=== PATIENT | female | born 1980 | race Asian ===

== ENCOUNTER 2019-02-04 23:16 | Emergency (ER) | payer OTHER ==
[2019-02-04 23:22] VITALS: BP 142/97; PULSE 86; TEMP 97.5; BMI 22.8
--- NOTE | 2019-02-05 00:03 | PDOC ---
History of Present Illness - General Chief Complaint: Migraine Headache Stated Complaint: MIGRAINE Time Seen by Provider: 02/05/19 00:03 History Source: Patient Exam Limitations: No Limitations - History of Present Illness Initial Comments: 02/05/19 00:11 38 year old female with PMH migraine headaches presented to ED for headache since 1999 today. Pt stated she was fasting all day today before her headache developed to her forehead, wrapping posteriorly across her bilateral parietal and occipital area. She stated her headache was gradual in onset. She stated she took 1 Sumitriptan, which usually resolves her headache, but she threw it up and her headache did not improve, so she came to the ED. She admitted to photophobia, phonophobia. She denied fever, chills, weakness, numbness, tingling , visual changes, neck stiffness. Allergies: NKDA Past History - Past Medical History Allergies/Adverse Reactions: Allergies Allergy/AdvReac Type Severity Reaction Status Date / Time No Known Allergies Allergy Verified 02/05/19 00:16 Home Medications: Ambulatory Orders NK [No Known Home Medication] 02/05/19 - Suicide/Smoking/Psychosocial Hx Smoking History: Unknown if ever smoked Hx Alcohol Use: No Drug/Substance Use Hx: No Review of Systems - Review of Systems Able to Perform ROS?: Yes Comments:: 02/05/19 00:11 General: denied fever, chills, generalized weakness. HEENT: denied sore throat, rhinorrhea, ear pain. admitted to phonophobia. Eye: admitted to photophobia. Heart: denied chest pain, palpitations, syncope, diaphoresis. Respiratory: denied shortness of breath, cough, sputum production, hemoptysis. Abdomen: admitted to nausea, vomiting. denied abdominal pain, diarrhea, constipation, blood in stool. : denied dysuria, increased urinary frequency, hematuria, urinary incontinence , flank pain. Back: denied back pain. Musculoskeletal: denied joint pain, muscle pain, joint swelling. Neurological: admitted to headache. denied dizziness, numbness, tingling, weakness. Skin: denied rash, laceration, abrasion. *Physical Exam - Vital Signs Last Vital Signs Temp Pulse Resp BP Pulse Ox 97.5 F L 86 20 142/97 99 02/04/19 23:18 02/04/19 23:18 02/04/19 23:18 02/04/19 23:18 02/04/19 23:18 - Physical Exam Comments: 02/05/19 00:16 Constitutional: Well-nourished, Well-developed, appearing stated age. HEENT: head is normocephalic, atraumatic. EOMI. PERRLA. Neck: supple. Full ROM. Heart: regular rhythm. no murmurs, rubs or gallops. Lungs: clear to auscultation bilaterally. no crackles, rhonchi or wheezing. no stridor. Abdomen: soft, nontender. normal bowel sounds. no rebound, guarding, masses. Extremities: peripheral pulses intact. no lower extremity edema. Neurological: alert. oriented x3. CN2-12 intact. 5/5 strength all extremities. normal ankle plantar flexion. 2/2 sensation to bilateral lower extremities. 2/2 sensation to bilateral upper extremities. 2/2 sensation to bilateral upper and lower face. no ataxia. gait not observed. Psych: awake, alert, oriented x3. follows commands. answers questions appropriately. Medical Decision Making - Medical Decision Making 02/05/19 00:12 38 year old female with PMH migraine headaches presented to ED for headache since 1999 today. Initial Vital Signs Temp Pulse Resp BP Pulse Ox 97.5 F L 86 20 142/97 99 02/04/19 23:18 02/04/19 23:18 02/04/19 23:18 02/04/19 23:18 02/04/19 23:18 Afebrile. No tachycardia. No tachypnea. Mild hypertension. No hypoxia on room air. Labs ordered: none Imaging ordered: none Medications ordered: normal saline bolus 1000 cc once, tylenol IV once, reglan 10 mg IV once, benadryl 25 mg IV 02/05/19 00:56 Pt reassessed, reported headache improvement from 07/08 to 02/05. Pt given sandwich and juice. 02/05/19 01:46 Pt reported improvement of headache and is requesting to go home. Pt informed to follow up with Dr. Dai and PCP. Pt discharged. *DC/Admit/Observation/Transfer Diagnosis at time of Disposition: Headache - Discharge Dispostion Disposition: HOME Condition at time of disposition: Improved Decision to Admit order: No - Referrals Referrals: Flor Regalado MD [Primary Care Provider] - - Patient Instructions Additional Instructions: You were seen today for headache. Take tylenol over the counter for your headache. Take 1000 mg every 8 hours as needed. Drink lots of fluids to stay hydrated. Eat three meals a day. Get at least 8 hours of sleep a night. Follow up with your neurologist within 1 week. Your care is not complete until you follow up. Follow up with your primary care doctor within 1 week. Your care is not complete until you follow up. Return to the Emergency Department for increasing headache despite Tylenol use, vomiting, changes to vision, neck stiffness, chest pain, shortness of breath, weakness of her extremities, numbness, tingling, changes to your gait, feeling off balance or any other new, worsening or concerning symptoms. - Post Discharge Activity Forms/Work/School Notes: Back to Work
[2019-02-05] MEDS ORDERED: METOCLOPRAMIDE HCL INJECTION 10 MG/2 ML VIAL IVPUSH ONE (00:13)
[2019-02-05] MEDS ORDERED: SODIUM CHLORIDE 1,000 ML IV STA (00:13)
[2019-02-05] MEDS ORDERED: ACETAMINOPHEN 1000 MG/100 ML VIAL (NON FORMULARY) IVPB ONE (00:13)
--- NOTE | 2019-02-05 02:09 | PDOC ---
Attending Attestation - Resident Resident Name: Chandni Nathan - ED Attending Attestation I have performed the following: I have examined & evaluated the patient, The case was reviewed & discussed with the resident, I agree w/resident's findings & plan, Exceptions are as noted - HPI HPI: 02/05/19 03:09 38F pmh migraine headaches here with POE since 8pm. POE is typical pattern for her, bilateral frontal radiating back, slow onset, not exertional, not maximum at onset, a/w photo/phonophobia, nausea. No other complaints - Physicial Exam PE: 02/05/19 03:12 NCAT, AOx3, NAD Neck supple agree with detailed exam as documented by resident - Medical Decision Making 02/05/19 03:12 Likely migranous headache, symptoms usually aborted by her fioricet but she couldn't keep the medication down analgesia ivf re-eval symptoms resolved f/u pcp as needed
== END 2019-02-05 01:49 | disposition home or self-care (01) ==
LOC: JER 23:16
PROC: 3E0337Z Introduction of Electrolytic and Water Balance Substance into Peripheral Vein, Percutaneous Approach (ICD-10-PCS; principal; 2019-02-04)
PROC: 3E033NZ Introduction of Analgesics, Hypnotics, Sedatives into Peripheral Vein, Percutaneous Approach (ICD-10-PCS; 2019-02-04)
PROC: 3E033GC Introduction of Other Therapeutic Substance into Peripheral Vein, Percutaneous Approach (ICD-10-PCS; 2019-02-04)
PROC: 3E033GC Introduction of Other Therapeutic Substance into Peripheral Vein, Percutaneous Approach (ICD-10-PCS; 2019-02-04)
DX: G43.909 Migraine, unspecified, not intractable, without status migrainosus (principal); R51 Headache
CPT/HCPCS: 99282-25; J0131; J7030

== ENCOUNTER 2020-06-09 05:05 | Day surgery (SDC) | payer OTHER ==
[2020-06-07 16:23] VITALS: BMI 22.6
[2020-06-09] MEDS ORDERED: LIDOCAINE HCL 1%, 10 MG/ML (20ML VIAL) ONE (07:52)
[2020-06-09 08:46] VITALS: BP 140/74; PULSE 83; TEMP 98.4
[2020-06-09] MEDS ORDERED: PROPOFOL 20 ML ONE ×2 (09:50)
[2020-06-09] MEDS ORDERED: MIDAZOLAM HCL 2 MG/2 ML SINGLE DOSE VIAL ONE (09:51)
== END 2020-06-09 10:17 | disposition home or self-care (01) ==
LOC: JASU-SURG 05:05
PROVIDERS: ATTEND Surgery
DX: Z53.8 Procedure and treatment not carried out for other reasons (principal)
CPT/HCPCS: 84703

== ENCOUNTER 2021-02-09 00:40 | Inpatient (IN) | payer OTHER ==
[2021-02-09] MEDS ORDERED: ELECTROLYTE-148 SOLN 1,000 ML IV SCH (01:00)
[2021-02-09 02:05] LABS: BASO % 0.2 % (0-2.0); HEMATOCRIT 41.6 % (32.4-45.2); HEMOGLOBIN 14.1 GM/dL (10.7-15.3); LYMPH % 26.7 % (8-40); MCH 28.5 pg (25.7-33.7); MCHC 33.9 g/dl (32.0-36.0); MEAN CELL VOLUME 84.1 fl (80-96); MEAN PLT VOLUME 9.4 fl (7.5-11.1); MONO % 9.1 % (3.8-10.2); PLATELET COUNT 191 K/MM3 (134-434); RBC 4.95 M/mm3 (3.60-5.2); RDW 17.3 % (11.6-15.6); WHITE BLOOD COUNT 8.1 K/mm3 (4.0-10.0)
[2021-02-09 02:15] LABS: INR 0.89 (0.83-1.09); PROTHROMBIN TIME (PATIENT) 10.8 SEC (9.7-13.0)
[2021-02-09 02:18] LABS: ACTIVATED PTT 26.4 SECONDS (25.2-36.5)
[2021-02-09 02:27] LABS: CALCIUM 8.8 mg/dL (8.5-10.1)
[2021-02-09 02:28] LABS: BLOOD UREA NITROGEN 10.6 mg/dL (7-18)
[2021-02-09 02:31] LABS: CREATININE 0.6 mg/dL (0.55-1.3)
[2021-02-09] MEDS ORDERED: FENTANYL/BUPIVACAINE/NS/PF - PCEA - 50 ML DISP.SYRIN EP ONE ×2 (02:32→05:53)
[2021-02-09] MEDS ORDERED: PCA PUMP NR ONE ×3 (02:32→08:53)
[2021-02-09 03:22] LABS: HIV INTERPRETATION NEGATIVE (NEGATIVE)
[2021-02-09 03:29] VITALS: BMI 25.4
[2021-02-09] MEDS ORDERED: FENTANYL/BUPIVACAINE/NS/PF - PCEA - 50 ML DISP.SYRIN EP SCH (03:30)
[2021-02-09] MEDS ORDERED: NALOXONE HCL 0.4 MG/ML VIAL IVPUSH PRN (03:30)
[2021-02-09] MEDS ORDERED: BUPIVACAINE HCL/PF 0.25% (2.5MG/ML) 10 ML VIAL ONE ×2 (04:42→07:03)
[2021-02-09] MEDS ORDERED: OXYTOCIN 20 UNITS in 0.9% NS 20 UNIT/1,000 ML INFUS.BAG IV ONE (07:16)
[2021-02-09] MEDS ORDERED: OXYTOCIN 30 UNITS in 0.9% NS 30 UNIT/500 ML INFUS.BAG IVPB ONE (07:16)
[2021-02-09] MEDS: OXYTOCIN 20 UNITS in 0.9% NS 20 UNIT/1,000 ML INFUS.BAG IV SCH (08:05)
[2021-02-09] MEDS ORDERED: BENZOCAINE 28 GM HEMORRHOIDAL OINTMENT TP PRN (08:21)
[2021-02-09] MEDS ORDERED: BISACODYL 10 MG SUPP.RECT RC PRN (08:21)
[2021-02-09] MEDS ORDERED: WITCH HAZEL 50% (TUCKS) 40 PAD/JAR PAD TP PRN (08:21)
[2021-02-09] MEDS ORDERED: METHYLERGONOVINE MALEATE 0.2 MG/1 ML AMP IM PRN (08:21)
[2021-02-09] MEDS ORDERED: BENZOCAINE 20% 57 GM BOTTLE TP PRN (08:21)
[2021-02-09] MEDS: LEVOTHYROXINE NA 25 MCG TABLET (FP) PO SCH (08:45)
[2021-02-09] MEDS ORDERED: IBUPROFEN 600 MG TABLET (FP) PO ONE (08:52)
[2021-02-09] MEDS ORDERED: ACETAMINOPHEN 325 MG TABLET (FP) ONE (08:53)
[2021-02-09] MEDS: IBUPROFEN 600 MG TABLET (FP) PO PRN ×3 (08:55→21:38)
[2021-02-09] MEDS: ACETAMINOPHEN 325 MG TABLET (FP) PO PRN ×3 (08:55→21:38)
[2021-02-09 09:00] LABS: CORD BASE EXCESS -7.6 mmol/L (0-2); CORD HCO3 20.7 mmHg (20-29); CORD PCO2 52.1 mmHg (30-78); CORD pH 7.218 (7.14-7.44)
[2021-02-09 09:02] LABS: CORD BASE EXCESS -9.1 mmol/L (0-2); CORD HCO3 21.2 mmHg (20-29); CORD PCO2 62.7 mmHg (30-78); CORD pH 7.146 (7.14-7.44)
[2021-02-09] MEDS: FERROUS SO4 325 MG TABLET (FP) PO SCH ×2 (10:00→17:18)
[2021-02-09] MEDS: PRENATAL VITAMINS W/ FOLIC ACID TABLET (FP) PO SCH (10:00)
[2021-02-10] MEDS: LEVOTHYROXINE NA 25 MCG TABLET (FP) PO SCH (06:31)
[2021-02-10] MEDS: IBUPROFEN 600 MG TABLET (FP) PO PRN ×3 (06:31→20:21)
[2021-02-10] MEDS: ACETAMINOPHEN 325 MG TABLET (FP) PO PRN ×3 (06:32→20:20)
[2021-02-10] MEDS: FERROUS SO4 325 MG TABLET (FP) PO SCH ×2 (08:50→17:28)
[2021-02-10 09:28] LABS: BASO % 0.2 % (0-2.0); EOS % 1.7 % (0-4.5); HEMATOCRIT 31.3 % (32.4-45.2); HEMOGLOBIN 10.7 GM/dL (10.7-15.3); LYMPH % 16.7 % (8-40); MCH 29.1 pg (25.7-33.7); MCHC 34.2 g/dl (32.0-36.0); MEAN CELL VOLUME 85.3 fl (80-96); MEAN PLT VOLUME 9.5 fl (7.5-11.1); MONO % 7.3 % (3.8-10.2); NEUT % 74.1 % (42.8-82.8); PLATELET COUNT 147 K/MM3 (134-434); RBC 3.67 M/mm3 (3.60-5.2); WHITE BLOOD COUNT 11.5 K/mm3 (4.0-10.0)
[2021-02-10] MEDS: PRENATAL VITAMINS W/ FOLIC ACID TABLET (FP) PO SCH (09:46)
[2021-02-10] MEDS ORDERED: SENNOSIDES/DOCUSATE COMBO (SENNA PLUS) TABLET (UD) PO PRN (22:00)
[2021-02-11] MEDS: IBUPROFEN 600 MG TABLET (FP) PO PRN ×3 (05:12→15:13)
[2021-02-11] MEDS: ACETAMINOPHEN 325 MG TABLET (FP) PO PRN ×3 (05:12→15:12)
[2021-02-11] MEDS: LEVOTHYROXINE NA 25 MCG TABLET (FP) PO SCH (06:15)
[2021-02-11] MEDS: OXYTOCIN 20 UNITS in 0.9% NS 20 UNIT/1,000 ML INFUS.BAG IV SCH (08:38)
[2021-02-11] MEDS: FERROUS SO4 325 MG TABLET (FP) PO SCH ×2 (08:41→17:59)
[2021-02-11 09:06] VITALS: BP 124/76; PULSE 67; TEMP 98.6
[2021-02-11] MEDS: PRENATAL VITAMINS W/ FOLIC ACID TABLET (FP) PO SCH (09:33)
== END 2021-02-11 18:05 | disposition home or self-care (01) | DRG 807 ==
LOC: JLDR 00:40 → J3W 10:30
PROVIDERS: ADMIT Obstetrics & Gynecology; ATTEND Obstetrics & Gynecology
PROC: 0W8NXZZ Division of Female Perineum, External Approach (ICD-10-PCS; principal; 2021-02-09)
PROC: 10E0XZZ Delivery of Products of Conception, External Approach (ICD-10-PCS; 2021-02-09)
DX: O42.02 Full-term premature rupture of membranes, onset of labor within 24 hours of rupture (principal); Z37.0 Single live birth; Z3A.38 38 weeks gestation of pregnancy; O99.284 Endocrine, nutritional and metabolic diseases complicating childbirth; O24.410 Gestational diabetes mellitus in pregnancy, diet controlled; E03.9 Hypothyroidism, unspecified
CPT/HCPCS: 36415; 36600; 59409; 80048; 82803; 82962; 85025; 85610; 85730; 86780; 86850; 86900; 86901; 87389; C9803; U0003; U0005

== ENCOUNTER 2023-02-11 04:00 | Day surgery (SDC) | payer OTHER ==
[2023-02-07 11:43] VITALS: BMI 21.9
[2023-02-11] MEDS ORDERED: LIDOCAINE HCL 1%, 10 MG/ML (10ML VIAL) MDV ONE (10:25)
[2023-02-11] MEDS ORDERED: BUPIVACAINE HCL/PF 0.5% (5MG/ML) 10 ML VIAL ONE (10:25)
[2023-02-11] MEDS ORDERED: PROPOFOL 20 ML ONE (10:28)
[2023-02-11] MEDS ORDERED: MIDAZOLAM HCL 2 MG/2 ML SINGLE DOSE VIAL ONE ×2 (10:29→10:45)
[2023-02-11] MEDS ORDERED: PROPOFOL 40 ML ONE (10:30)
[2023-02-11] MEDS ORDERED: BUPIVACAINE HCL/PF 0.5% (5MG/ML) 10 ML VIAL IJ ONE ×2 (10:54)
[2023-02-11] MEDS ORDERED: LIDOCAINE HCL 1%, 10 MG/ML (20ML VIAL) INF ONE ×2 (10:54)
[2023-02-11] MEDS ORDERED: ceFAZolin 2 GRAM PREMIX BAG IVPB ONE (10:54)
[2023-02-11] MEDS ORDERED: ONDANSETRON 4 MG/2 ML VIAL IVPUSH PRN (11:44)
[2023-02-11] MEDS ORDERED: LACTATED RINGERS SOLUTION 1,000 ML IV SCH (11:45)
[2023-02-11 12:37] VITALS: RESP 20
[2023-02-11] MEDS ORDERED: IBUPROFEN 600 MG TABLET (FP) PO ONE (12:48)
[2023-02-11 14:05] VITALS: BP 125/80; PULSE 84; TEMP 98.2
== END 2023-02-11 14:05 | disposition home or self-care (01) ==
LOC: JASU-SURG 04:00
PROVIDERS: ATTEND Surgery
PROC: 0JB60ZZ Excision of Chest Subcutaneous Tissue and Fascia, Open Approach (ICD-10-PCS; principal; 2023-02-11 11:30)
DX: L72.3 Sebaceous cyst (principal)
CPT/HCPCS: 81025; 88304-TC; 94760

== ENCOUNTER 2024-01-12 20:12 | Emergency (ER) | payer OTHER ==
[2024-01-12 20:15] VITALS: RESP 17; BMI 25.6
[2024-01-12] MEDS ORDERED: KETOROLAC TROMETHAMINE 15 MG/ML VIAL IVPUSH ONE (21:11)
[2024-01-12] MEDS ORDERED: METOCLOPRAMIDE HCL INJECTION 10 MG/2 ML VIAL ONE (21:34)
[2024-01-12] MEDS ORDERED: ACETAMINOPHEN INJECTION 100 ML IVPB ONE (21:34)
[2024-01-12] MEDS: LACTATED RINGERS SOLUTION 1000 ML INFUS.BAG IV ONE (22:02)
[2024-01-12] MEDS: ACETAMINOPHEN 1000 MG/100 ML BAG IVPB ONE (22:02)
[2024-01-12] MEDS: METOCLOPRAMIDE HCL INJECTION 10 MG/2 ML VIAL IVPUSH ONE (22:02)
[2024-01-12 22:11] LABS: BASO % 0.2 % (0-2.0); EOS % 0.3 % (0-4.5); HEMATOCRIT 45.1 % (32.4-45.2); HEMOGLOBIN 15.4 GM/dL (10.7-15.3); LYMPH % 17.8 % (8-40); MCH 29.1 pg (25.7-33.7); MCHC 34.1 g/dl (32.0-36.0); MEAN CELL VOLUME 85.3 fl (80-96); MEAN PLT VOLUME 8.9 fl (7.5-11.1); MONO % 3.5 % (3.8-10.2); NEUT % 78.2 % (42.8-82.8); PLATELET COUNT 243 10^3/uL (134-434); RBC 5.29 M/mm3 (3.60-5.2); RDW 13.6 % (11.6-15.6)
[2024-01-12 22:37] LABS: POTASSIUM 4.2 mmol/L (3.5-5.1)
[2024-01-12 22:40] LABS: ALBUMIN 4.4 g/dl (3.4-5.0); CALCIUM 9.8 mg/dL (8.5-10.1)
[2024-01-12 22:41] LABS: MAGNESIUM 2.4 mg/dL (1.8-2.4)
[2024-01-12 22:43] LABS: CREATININE 0.6 mg/dL (0.55-1.3); PHOSPHOROUS 3.2 mg/dL (2.5-4.9)
[2024-01-12 22:45] LABS: BILIRUBIN,TOTAL 0.8 mg/dL (0.2-1)
[2024-01-12 23:32] VITALS: BP 116/80; PULSE 84; TEMP 98.2
== END 2024-01-12 23:57 | disposition home or self-care (01) ==
LOC: JER 20:12
PROC: 3E033NZ Introduction of Analgesics, Hypnotics, Sedatives into Peripheral Vein, Percutaneous Approach (ICD-10-PCS; principal; 2024-01-12)
PROC: 3E033GC Introduction of Other Therapeutic Substance into Peripheral Vein, Percutaneous Approach (ICD-10-PCS; 2024-01-12)
DX: G43.909 Migraine, unspecified, not intractable, without status migrainosus (principal); R11.2 Nausea with vomiting, unspecified; H53.149 Visual discomfort, unspecified; R63.8 Other symptoms and signs concerning food and fluid intake; Z20.822 Contact with and (suspected) exposure to COVID-19
CPT/HCPCS: 0241U-QW; 36415; 80053; 83735; 84100; 84703; 85025; 93005; 93010; 99284-25; J0131

== ENCOUNTER 2024-11-10 03:59 | Day surgery (SDC) | payer OTHER ==
[2024-11-08 15:35] VITALS: BMI 23.8
[2024-11-10 10:07] VITALS: RESP 20
[2024-11-10] MEDS ORDERED: PROPOFOL 20 ML ONE (11:20)
[2024-11-10] MEDS ORDERED: MIDAZOLAM HCL 2 MG/2 ML SINGLE DOSE VIAL ONE ×2 (11:21→11:45)
[2024-11-10] MEDS ORDERED: oxyCODONE HCL 5 MG TABLET PO PRN (11:39)
[2024-11-10] MEDS ORDERED: ONDANSETRON 4 MG/2 ML VIAL IVPUSH PRN (11:39)
[2024-11-10] MEDS ORDERED: LACTATED RINGERS SOLUTION 1,000 ML IV SCH (11:45)
[2024-11-10] MEDS ORDERED: LIDOCAINE 1%/EPI 1:100000 (20 ML MULTI DOSE VIAL) ONE (11:50)
[2024-11-10] MEDS ORDERED: ceFAZolin SODIUM 1 GM VIAL ONE ×2 (11:56)
[2024-11-10] MEDS ORDERED: ONDANSETRON 4 MG/2 ML VIAL ONE (11:56)
[2024-11-10] MEDS ORDERED: TRIAMCINOLONE ACET 40MG/1ML VIAL ONE (12:20)
[2024-11-10 16:46] VITALS: BP 112/71; PULSE 72; TEMP 97.3
== END 2024-11-10 16:45 | disposition home or self-care (01) ==
LOC: JASU-SURG 03:59
PROVIDERS: ATTEND Surgery
PROC: 0JB60ZZ Excision of Chest Subcutaneous Tissue and Fascia, Open Approach (ICD-10-PCS; principal; 2024-11-10 12:16)
DX: L72.3 Sebaceous cyst (principal)
CPT/HCPCS: 81025; 88305-TC